=== PATIENT | male | born 1985 | race Hispanic/Latino ===

== ENCOUNTER 2017-09-19 20:11 | Emergency (ER) | payer SELFPAY ==
[2017-09-19 20:17] VITALS: O2SAT 100
[2017-09-19] MEDS ORDERED: Sodium Chloride 0.9% 1,000 ML IV STA (20:30)
--- NOTE | 2017-09-19 20:36 | ED PDOC ---
Syncope/Near Syncope/Dizziness Time Seen by Provider: 09/19/17 20:16 Chief Complaint (Nursing): Syncope Chief Complaint (Provider): Near syncope History Per: Patient History/Exam Limitations: no limitations Additional Complaint(s): Pt states he was having dinner inside when he felt tingling in both sides of jaw , tingling in both arms/hands and both legs, SOB, felt like he was going to pass out but did not. Symptoms lasted ~30 minutes. No ABDALLA, no focal weakness. Pt had 1/2 tequila tonight. Denies CP, palpitations, nausea, vomiting, visual changes. Past Medical History Reviewed: Nursing Documentation, Vital Signs Vital Signs: Last Vital Signs Temp 98.3 F 09/19/17 20:13 Pulse 69 09/19/17 20:13 Resp 18 09/19/17 20:13 BP 107/63 09/19/17 20:13 Pulse Ox 100 09/19/17 20:13 - Medical History PMH: No Chronic Diseases - Surgical History Surgical History: No Surg Hx - Family History Family History: States: Unknown Family Hx - Living Arrangements Living Arrangements: With Family - Social History Current smoker - smoking cessation education provided: No Alcohol: Social Drugs: Denies - Allergies Allergies/Adverse Reactions: Allergies Allergy/AdvReac Type Severity Reaction Status Date / Time No Known Allergies Allergy Verified 09/19/17 20:13 Review of Systems Constitutional: Negative for: Fever, Chills Eyes: Negative for: Vision Change Cardiovascular: Negative for: Chest Pain, Palpitations Respiratory: Positive for: Shortness of Breath. Negative for: Cough Gastrointestinal: Negative for: Nausea, Vomiting, Abdominal Pain Genitourinary Male: Negative for: Dysuria, Hematuria Skin: Negative for: Rash, Lesions Neurological: Positive for: Dizziness. Negative for: Weakness, Numbness, Incoordination, Change in Speech, Confusion, Seizures, Altered Mental Status, Headache Physical Exam - Reviewed Nursing Documentation Reviewed: Yes Vital Signs Reviewed: Yes - Physical Exam Appears: Positive for: Well, No Acute Distress Head Exam: Positive for: ATRAUMATIC, NORMAL INSPECTION Skin: Positive for: Normal Color, Warm, Dry Eye Exam: Positive for: Normal appearance, EOMI, PERRL Cardiovascular/Chest: Positive for: Regular Rate, Rhythm Respiratory: Positive for: Normal Breath Sounds. Negative for: Rales, Rhonchi, Wheezing Gastrointestinal/Abdominal: Positive for: Normal Exam, Bowel Sounds, Soft. 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 Negative for: Motor/Sensory Deficits, Aphasia, Facial Droop - Laboratory Results Result Diagrams: 09/19/17 20:44 09/19/17 20:44 - ECG Interpretation Of ECG: NSR @ 71, IRBBB, no ST-T changes. O2 Sat by Pulse Oximetry: 100 Pulse Ox Interpretation: Normal Medical Decision Making Medical Decision Makin yo male with near syncopal episode. - labs - EKG - CT head - orthostatics - IVF Accession No. : [id number] Patient Name / ID : CASEY Oneill / [id number] Exam Date : 09/19/2017 21:22:12 ( Approved ) Study Comment : Sex / Age : M / 32Y Creator : Ean Weathers MD Dictator : Ean Weathers MD Software Developer Manager : Oil Dipper : Ean Weathers MD Approver2 : Report Date : 09/20/2017 08:59:38 My Comment : Date of service: 09/19/2017 PROCEDURE: CT HEAD WITHOUT CONTRAST. HISTORY: Vertigo COMPARISON: None available. TECHNIQUE: Axial computed tomography images were obtained through the head/brain without intravenous contrast. Radiation dose: Total exam DLP = 891.8 mGy-cm. This CT exam was performed using one or more of the following dose reduction techniques: Automated exposure control, adjustment of the mA and/or kV according to patient size, and/or use of iterative reconstruction technique. FINDINGS: HEMORRHAGE: No intracranial hemorrhage. BRAIN: No mass effect or edema. No atrophy or chronic microvascular ischemic changes. VENTRICLES: Unremarkable. No hydrocephalus. CALVARIUM: Unremarkable. PARANASAL SINUSES: Mild ethmoid sinus disease. MASTOID AIR CELLS: Unremarkable as visualized. No inflammatory changes. OTHER FINDINGS: None. IMPRESSION: No acute intracranial pathology. Pt refused CXR. Disposition - Clinical Impression Clinical Impression: Near syncope - Patient ED Disposition Is Patient to be Admitted: No - Disposition Referrals: [facility] [Outside] [facility] [Outside] Disposition: Routine/Home Disposition Time: 22:34 Condition: IMPROVED Instructions: Near Fainting Forms: [facility] (Syriac)
[2017-09-19 20:49] LABS: BASO # 0.1 K/uL (0.0-0.2); BASO % 0.8 % (0.0-2.0); EOS # 0.2 K/uL (0.0-0.7); EOS % 2.4 % (0.0-4.0); HEMOGLOBIN 11.9 g/dL (12.0-18.0); LYMPH # 1.8 K/uL (1.0-4.3); LYMPH % 25.7 % (20.0-40.0); MEAN CELL VOLUME 56.5 fl (80.0-94.0); MEAN CORPUSCULAR HEMOGLOBIN 18.2 pg (27.0-31.0); MEAN CORPUSCULAR HGB CONC 32.3 g/dL (33.0-37.0); MEAN PLATELET VOLUME 9.2 fl (7.2-11.7); MONO # 0.4 K/uL (0.0-0.8); MONO % 5.6 % (0.0-10.0); NEUT # 4.5 K/uL (1.8-7.0); NEUT % 65.5 % (50.0-75.0); NRBC % 0.2 % (0.0-0.0); RBC 6.54 Mil/uL (4.40-5.90); RED CELL DISTRIBUTION WIDTH 16.5 % (11.5-14.5); WHITE BLOOD COUNT 6.8 K/uL (4.8-10.8)
[2017-09-19 20:59] LABS: ALB/GLOB RATIO 1.6 (1.0-2.1); ALBUMIN 4.6 g/dL (3.5-5.0); ALT/SGPT 39 U/L (21-72); AST/SGOT 22 U/L (17-59); BLOOD UREA NITROGEN 17 mg/dl (9-20); CALCIUM 9.7 mg/dL (8.4-10.2); GFR NON-AFRICAN AMERICAN > 60
[2017-09-19 22:37] VITALS: BP 127/82; PULSE 77; RESP 16; TEMP 98.2
--- NOTE | 2017-09-20 09:01 | CT ---
Date of service: 09/19/2017 PROCEDURE: CT HEAD WITHOUT CONTRAST. HISTORY: Vertigo COMPARISON: None available. TECHNIQUE: Axial computed tomography images were obtained through the head/brain without intravenous contrast. Radiation dose: Total exam DLP = 891.8 mGy-cm. This CT exam was performed using one or more of the following dose reduction techniques: Automated exposure control, adjustment of the mA and/or kV according to patient size, and/or use of iterative reconstruction technique. FINDINGS: HEMORRHAGE: No intracranial hemorrhage. BRAIN: No mass effect or edema. No atrophy or chronic microvascular ischemic changes. VENTRICLES: Unremarkable. No hydrocephalus. CALVARIUM: Unremarkable. PARANASAL SINUSES: Mild ethmoid sinus disease. MASTOID AIR CELLS: Unremarkable as visualized. No inflammatory changes. OTHER FINDINGS: None. IMPRESSION: No acute intracranial pathology.
--- NOTE | 2017-09-21 17:54 | CARD ---
APPROVED REPORT Date of service: 09/19/2017 EKG Measurement Heart [id number] <Conclusion> Normal sinus rhythm Incomplete right bundle branch block Borderline ECG
== END 2017-09-19 23:01 | disposition home or self-care (01) ==
LOC: H.ER 20:11
DX: R55 Syncope and collapse (principal)
CPT/HCPCS: 70450; 80053; 82948; 85025; 96360; G0480; J7030

== ENCOUNTER 2018-01-07 23:26 | Emergency (ER) | payer OTHER ==
[2018-01-07 23:38] VITALS: TEMP 98
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
[2018-01-08] MEDS ORDERED: Sodium Chloride 0.9% 1,000 ML IV STA (00:02)
[2018-01-08 00:19] LABS: SQUAMOUS EPITHIAL 1 /hpf (0-5); URINE BACTERIA RARE (<OCC); URINE BILIRUBIN NEGATIVE (NEGATIVE); URINE BLOOD NEGATIVE (NEGATIVE); URINE CLARITY SLIGHTY-CLOUDY (Clear); URINE COLOR AMBER (YELLOW); URINE GLUCOSE (UA) NEG (Normal); URINE LEUKOCYTE ESTERASE NEG Leu/uL (Negative); URINE PROTEIN NEGATIVE (NEGATIVE); URINE UROBILINOGEN 0.2-1.0 mg/dL (0.2-1.0)
[2018-01-08 00:35] LABS: BASO # 0.1 K/uL (0.0-0.2); BASO % 0.6 % (0.0-2.0); EOS # 0.1 K/uL (0.0-0.7); EOS % 1.7 % (0.0-4.0); HEMOGLOBIN 11.6 g/dL (12.0-18.0); LYMPH # 1.4 K/uL (1.0-4.3); MEAN CELL VOLUME 55.9 fl (80.0-94.0); MEAN CORPUSCULAR HEMOGLOBIN 17.8 pg (27.0-31.0); MEAN CORPUSCULAR HGB CONC 31.8 g/dL (33.0-37.0); MEAN PLATELET VOLUME 9.5 fl (7.2-11.7); MONO # 0.6 K/uL (0.0-0.8); MONO % 6.7 % (0.0-10.0); NEUT # 6.1 K/uL (1.8-7.0); NRBC % 0.3 % (0.0-0.0); RBC 6.5 Mil/uL (4.40-5.90); RED CELL DISTRIBUTION WIDTH 16.8 % (11.5-14.5); WHITE BLOOD COUNT 8.3 K/uL (4.8-10.8)
[2018-01-08 00:37] VITALS: RESP 18
[2018-01-08 01:17] LABS: ALB/GLOB RATIO 1.6 (1.0-2.1); ALBUMIN 4.6 g/dL (3.5-5.0); ALT/SGPT 37 U/L (21-72); AST/SGOT 19 U/L (17-59); BLOOD UREA NITROGEN 14 mg/dl (9-20); CALCIUM 9.4 mg/dL (8.4-10.2); GFR NON-AFRICAN AMERICAN > 60
[2018-01-08 02:21] VITALS: BP 115/67; PULSE 66; O2SAT 97
--- NOTE | 2018-01-08 09:40 | RAD ---
Date of service: 01/08/2018 HISTORY: shortness of breath COMPARISON: No prior. TECHNIQUE: Chest PA and lateral FINDINGS: LUNGS: No active pulmonary disease. PLEURA: No significant pleural effusion identified. No pneumothorax apparent. CARDIOVASCULAR: No aortic atherosclerotic calcification present. Normal cardiac size. No pulmonary vascular congestion. OSSEOUS STRUCTURES: No significant abnormalities. VISUALIZED UPPER ABDOMEN: Normal. OTHER FINDINGS: None. IMPRESSION: No acute cardiopulmonary disease appreciated.
== END 2018-01-08 02:23 | disposition home or self-care (01) ==
LOC: H.ER 23:26
DX: R00.2 Palpitations (principal); F41.9 Anxiety disorder, unspecified; R06.00 Dyspnea, unspecified
CPT/HCPCS: 71046; 80053; 81003; 84443; 84484; 85025; 96360; 99285; J7030

== ENCOUNTER 2018-05-27 21:48 | Emergency (ER) | payer OTHER ==
[2018-05-27 22:00] VITALS: BP 123/84; PULSE 84; RESP 16; TEMP 98.5; O2SAT 98
--- NOTE | 2018-05-27 22:30 | ED PDOC ---
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 BY PMD NOTES NEW RIGHT SIDED TEMPORAL PAIN LASTING FOR FEW MINUTES IN INTENSITY AND NOW IMPROVING.) Past Medical History Reviewed: Historical Data, Nursing Documentation, Vital Signs Vital Signs: Last Vital Signs Temp 98.5 F 05/27/18 21:57 Pulse 84 05/27/18 21:57 Resp 16 05/27/18 21:57 BP 123/84 05/27/18 21:57 Pulse Ox 98 05/27/18 21:57 - Medical History PMH: Anxiety - Family History Family History: States: Unknown Family Hx - Allergies Allergies/Adverse Reactions: Allergies Allergy/AdvReac Type Severity Reaction Status Date / Time No Known Allergies Allergy Verified 05/27/18 21:57 Review of Systems ROS Statement: Except As Marked, All Systems Reviewed And Found Negative Physical Exam - Reviewed Nursing Documentation Reviewed: Yes Vital Signs Reviewed: Yes - Physical Exam Appears: Positive for: Well, Non-toxic, No Acute Distress Head Exam: Positive for: ATRAUMATIC, NORMAL INSPECTION, NORMOCEPHALIC Skin: Positive for: Normal Color, Warm, DRY Eye Exam: Positive for: EOMI, Normal appearance, PERRL ENT: Positive for: Normal ENT Inspection Neck: Positive for: Normal, Painless ROM Cardiovascular/Chest: Positive for: Regular Rate, Rhythm Respiratory: Positive for: CNT, Normal Breath Sounds Gastrointestinal/Abdominal: Positive for: Normal Exam, Soft Back: Positive for: Normal Inspection Extremity: Positive for: Normal ROM Neurological/Psych: Positive for: Awake, Alert, Normal Tone - ECG O2 Sat by Pulse Oximetry: 98 Medical Decision Making Medical Decision Makin:25 CT Head FINDINGS: BRAIN No acute intraparenchymal hemorrhage. No mass lesion. No CT evidence for acute territorial infarct. No midline shift or extra-axial collections. VENTRICLES: No hydrocephalus. ORBITS: The orbits are unremarkable. SINUSES AND MASTOIDS: The paranasal sinuses and mastoid air cells are clear. BONES: No fracture. SOFT TISSUES: Unremarkable. IMPRESSION: No acute intracranial abnormality. Disposition - Clinical Impression Clinical Impression: Headache - Patient ED Disposition Is Patient to be Admitted: No - Disposition Disposition: Routine/Home Disposition Time: 23:29 Condition: FAIR Instructions: Headache, Adult
--- NOTE | 2018-05-28 08:04 | CT ---
Date of service: 05/27/2018 PROCEDURE: CT HEAD WITHOUT CONTRAST. HISTORY: HEADACHE COMPARISON: Unenhanced head CT 09/19/2017. TECHNIQUE: Axial computed tomography images were obtained through the head/brain without intravenous contrast. Radiation dose: Total exam DLP = 831.91 mGy-cm. This CT exam was performed using one or more of the following dose reduction techniques: Automated exposure control, adjustment of the mA and/or kV according to patient size, and/or use of iterative reconstruction technique. FINDINGS: HEMORRHAGE: No intracranial hemorrhage. BRAIN: Normal guardado-white matter differentiation and density are appreciated throughout the cerebrum and cerebellum with a question artifact or chronic lucency seen at the anterior paresh best seen on the sagittal reconstruction. Dense artifact is appreciated through this location in the transaxial images suggesting this is a false finding. There is no mass effect. There is no suspicious extra-axial fluid collection and the midline brain anatomy appears diffusely unremarkable. VENTRICLES: Unremarkable. No hydrocephalus. CALVARIUM: Unremarkable. PARANASAL SINUSES: Unremarkable as visualized. No significant inflammatory changes. MASTOID AIR CELLS: Unremarkable as visualized. No inflammatory changes. OTHER FINDINGS: None. IMPRESSION: Stable nonacute unenhanced head CT remarkable only for likely artifactual lucency at the anterior paresh. No significant change greater prior head CT 09/11/2017. MRI can better evaluate the paresh or CT utilizing high-resolution technique at higher and mAs and kV. Preliminary report provided by Mavis, 05/27/2018 11:25 p.m..
== END 2018-05-28 01:20 | disposition home or self-care (01) ==
LOC: H.ER 21:48
DX: R51 Headache (principal)

== ENCOUNTER 2018-07-06 10:33 | Emergency (ER) | payer MEDICAID, OTHER ==
[2018-07-06 10:39] VITALS: BP 122/77; PULSE 75; RESP 18; TEMP 97; O2SAT 99
[2018-07-06 10:40] VITALS: BMI 21.1
--- NOTE | 2018-07-06 11:07 | ED PDOC ---
HPI: General Adult Time Seen by Provider: 07/06/18 10:58 Chief Complaint (Nursing): ENT Problem Chief Complaint (Provider): sore throat History Per: Patient (33 y/o male here with sore throat ongoing x 1 year after eating hard candy but noted worse recently. Denies any fevers/chills. Has been seen by pmd in past and told he has normal exam. Has had GI evaluation for other complaints and given rx for ppi. Notes throat pain is worse in morning. ) Past Medical History Reviewed: Historical Data, Nursing Documentation, Vital Signs Vital Signs: Last Vital Signs Temp 97 F L 07/06/18 10:38 Pulse 75 07/06/18 10:38 Resp 18 07/06/18 10:38 BP 122/77 07/06/18 10:38 Pulse Ox 99 07/06/18 10:38 Primary Care Provider: Non [facility] Provider, - Medical History PMH: Anxiety Denies: Gastritis (denies) - Family History Family History: States: Unknown Family Hx - Home Medications Home Medications: Ambulatory Orders Medication Instructions Recorded Ranitidine HCl [Zantac 75] 1 tab PO DAILY #7 tablet 07/06/18 - Allergies Allergies/Adverse Reactions: Allergies Allergy/AdvReac Type Severity Reaction Status Date / Time No Known Allergies Allergy Verified 05/27/18 21:57 Review of Systems ROS Statement: Except As Marked, All Systems Reviewed And Found Negative Physical Exam - Reviewed Nursing Documentation Reviewed: Yes Vital Signs Reviewed: Yes - Physical Exam Appears: Positive for: Well, Non-toxic, No Acute Distress Head Exam: Positive for: ATRAUMATIC, NORMAL INSPECTION, NORMOCEPHALIC Skin: Positive for: Normal Color, Warm, DRY Eye Exam: Positive for: EOMI, Normal appearance, PERRL ENT: Positive for: Normal ENT Inspection Neck: Positive for: Normal, Painless ROM Cardiovascular/Chest: Positive for: Regular Rate, Rhythm Respiratory: Positive for: CNT, Normal Breath Sounds Gastrointestinal/Abdominal: Positive for: Normal Exam, Soft Back: Positive for: Normal Inspection Extremity: Positive for: Normal ROM Neurological/Psych: Positive for: Awake, Alert, Normal Tone - ECG O2 Sat by Pulse Oximetry: 99 - Progress ED Course And Treament: rapid strep: neg for strep Disposition - Clinical Impression Clinical Impression: Sore throat - Patient ED Disposition Is Patient to be Admitted: No - Disposition Referrals: Gerardo Malone MD [Staff Provider] - Disposition: Routine/Home Disposition Time: 12:33 Condition: FAIR Prescriptions: Ranitidine HCl [Zantac 75] 1 tab PO DAILY #7 tablet Instructions: Sore Throat in Adults
== END 2018-07-06 12:45 | disposition home or self-care (01) ==
LOC: H.ER 10:33
DX: J02.9 Acute pharyngitis, unspecified (principal)